=== PATIENT | male | born 1965 | race Caucasian/White ===

== ENCOUNTER 2025-05-11 04:45 | Emergency (ER) | payer SELFPAY ==
[2025-05-11] MEDS ORDERED: Acetaminophen 500 MG TAB ONE (06:01)
== END 2025-05-11 06:05 ==
LOC: ERS 04:45 → EEVIPCON 04:45 → ERS 06:05
DX: Z02.89 Encounter for other administrative examinations (principal); I10 Essential (primary) hypertension